=== PATIENT | male | born 1990 | race Caucasian/White ===

== ENCOUNTER 2017-04-14 11:53 | Emergency (ER) | payer BC ==
--- NOTE | 2017-04-14 12:15 | EDM.PDOC ---
ED HPI GENERAL MEDICAL PROBLEM - General Chief Complaint: Respiratory Problem Stated Complaint: COUGH, CHEST PAIN Time Seen by Provider: 04/14/17 12:15 Source of Information: Reports: Patient History Limitations: Reports: No Limitations - History of Present Illness INITIAL COMMENTS - FREE TEXT/NARRATIVE: HISTORY AND PHYSICAL: []26-year-old male presenting with a cough, sternal chest pain with cough History of Present Illness: []Patient recently returned from [place] with his family all the family members have been sick and now starting to get well. Patient awakened last night with hard coughing now is complaining of pain to the lower sternum. He took some ibuprofen looked it up on the Internet. Is concerned about inflammation. Review of Systems: As per history of present illness and below otherwise all systems reviewed and negative. Past medical history: As per history of present illness and as reviewed below otherwise noncontributory. Surgical history: As per history of present illness and as reviewed below otherwise noncontributory. Social history: No reported history of drug or alcohol abuse. Family history: As per history of present illness and as reviewed below otherwise noncontributory. Physical exam: Alert and oriented male, nontoxic in appearance. Can speak in about 4-5 words without having cough. Is answering questions appropriately. HEENT: Atraumatic, normocehpalic, pupils reactive, negative for conjunctival pallor or scleral icterus, mucous membranes moist, throat clear, neck supple, nontender, trachea midline. Lungs: Coarse to auscultation, breath sounds diminished equal bilaterally, chest tender with palpation at the lower sternum. Heart: S1S2, regular, negative for clicks, rubs, or JVD. Abdomen: Soft, nondistended, nontender. Negative for masses or hepatossplenmegaly. Negative for costovertebral tenderness. Pelvis: Stable nontender. Genitourinary: Deferred. Rectal: Deferred Extremities: Atraumatic, negative for cords or calf pain. Neurovascular unremarkable. Neuro: Awake, alert, oriented. Cranial nerves II through XII unremarkable. Cerebellum unremarkable. Motor and sensory unremarkable throughout. Exam nonfocal. Diagnostics: [CBC rapid strep chest x-ray influenza] Therapeutics: [] Impression: [] Plan: [] Definitive disposition and diagnosis as appropriate pending reevaluation and review of above. Onset: Sudden Duration: Day(s):, Getting Worse Location: Reports: Chest Quality: Reports: Ache Severity: Moderate Improves with: Reports: None Worsens with: Reports: Breathing Middle Chest Pain Score (Numeric/FACES): 2 - Related Data Allergies Allergy/AdvReac Type Severity Reaction Status Date / Time No Known Allergies Allergy Verified 04/14/17 12:21 Home Meds: Home Meds . [No Known Home Meds] 04/14/17 [History] ED ROS GENERAL - Review of Systems Review Of Systems: ROS reveals no pertinent complaints other than HPI. ED EXAM, GENERAL - Physical Exam Exam: See Below (see dictation) Course - Vital Signs Last Recorded V/S: Last Vital Signs Temp 37.9 C 04/14/17 12:16 Pulse 98 04/14/17 12:16 Resp 18 04/14/17 12:16 BP 127/71 04/14/17 12:16 Pulse Ox 98 04/14/17 12:16 - Orders/Labs/Meds Orders: Active Orders 24 hr Category Date Time Status Pen G Chauncey/Pen G Procaine [Bicillin C-R 600/600] Med 04/14/17 13:06 Once 1.2 millunits IM ONETIME ONE Medication Orders Penicillin G Procaine/Benzathine (Bicillin C-R 600/600) 1.2 millunits IM ONETIME ONE Stop: 04/14/17 13:07 Labs: Laboratory Tests 04/14/17 Range/Units 12:56 WBC 12.03 H (4.0-11.0) K/uL RBC 5.20 (4.50-5.90) M/uL Hgb 15.4 (13.0-17.0) g/dL Hct 44.1 (38.0-50.0) % MCV 84.8 (80.0-98.0) fL MCH 29.6 (27.0-32.0) pg MCHC 34.9 (31.0-37.0) g/dL RDW Std Deviation 40.7 (28.0-62.0) fl RDW Coeff of Lizandro 13 (11.0-15.0) % Plt Count 223 (150-400) K/uL MPV 8.80 (7.40-12.00) fL Neut % (Auto) 73.2 (48.0-80.0) % Lymph % (Auto) 14.2 L (16.0-40.0) % [place] % (Auto) 11.9 (0.0-15.0) % Eos % (Auto) 0.5 (0.0-7.0) % Baso % (Auto) 0.2 (0.0-1.5) % Neut # (Auto) 8.8 H (1.4-5.7) K/uL Lymph # (Auto) 1.7 (0.6-2.4) K/uL [place] # (Auto) 1.4 H (0.0-0.8) K/uL Eos # (Auto) 0.1 (0.0-0.7) K/uL Baso # (Auto) 0.0 (0.0-0.1) K/uL Nucleated RBC % 0.0 /100WBC Nucleated RBCs # 0 K/uL Meds: Medications Generic Name Dose Route Start Last Admin Trade Name Freq PRN Reason Stop Dose Admin Penicillin G Procaine/Benzathine 1.2 millunits 04/14/17 13:06 Bicillin C-R 600/600 IM 04/14/17 13:07 ONETIME ONE Departure - Departure Time of Disposition: 13:06 Disposition: Home, Self-Care 01 Condition: Good Clinical Impression: Strep pharyngitis - Discharge Information Referrals: PCP,None [Primary Care Provider] - Forms: ED Department Discharge Additional Instructions: The following information is given to patients seen in the emergency department who are being discharged to home. This information is to outline your options for follow-up care. We provide all patients seen in our emergency department with a follow-up referral. The need for follow-up, as well as the timing and circumstances, are variable depending upon the specifics of your emergency department visit. If you don't have a primary care physician on staff, we will provide you with a referral. We always advise you to contact your personal physician following an emergency department visit to inform them of the circumstance of the visit and for follow-up with them and/or the need for any referrals to a consulting specialist. The emergency department will also refer you to a specialist when appropriate. This referral assures that you have the opportunity for followup care with a specialist. All of these measure are taken in an effort to provide you with optimal care, which includes your followup. Under all circumstances we always encourage you to contact your private physician who remains a resource for coordinating your care. When calling for followup care, please make the office aware that this follow-up is from your recent emergency room visit. If for any reason you are refused follow-up, please contact the [facility] emergency department at and asked to speak to the emergency department charge nurse. Influenza test is negative You were found to have a strep bacteria You were given penicillin injection in the ED Your family should be evaluated and treated Follow-up with your primary care provider - My Orders Last 24 Hours: My Active Orders 04/14/17 13:06 Pen G Chauncey/Pen G Procaine [Bicillin C-R 600/600] 1.2 millunits IM ONETIME ONE - Assessment/Plan Last 24 Hours: My Active Orders 04/14/17 13:06 Pen G Chauncey/Pen G Procaine [Bicillin C-R 600/600] 1.2 millunits IM ONETIME ONE
--- NOTE | 2017-04-14 13:02 | CR ---
EXAMINATION: Two-view chest (PA and Lateral views). HISTORY: Shortness of breath. FINDINGS: The trachea is midline. The cardiomediastinal silhouette is within normal limits. No pulmonary infilt rates, effusions or pneumothorax. Osseous structures appear unremarkable. IMPRESSION: No acute cardiopulmonary process.
[2017-04-14] MEDS ORDERED: Penicillin G Benzathine/Procaine 600-600 1.2 Millunits/2 ML Syringe IM ONE (13:06)
[2017-04-14] MEDS ORDERED: Penicillin G Benzathine 1,200,000 Units/2 ML Syringe IM ONE ×2 (13:15)
[2017-04-14 15:02] VITALS: BP 126/68
== END 2017-04-14 13:39 | disposition home or self-care (01) ==
LOC: MW.ED 11:53
DX: J02.0 Streptococcal pharyngitis (principal)
CPT/HCPCS: 36415; 71020; 85025; 87804; 87880; 96372; 99283; J0561

== ENCOUNTER 2018-03-23 09:30 | Emergency (ER) | payer BC ==
--- NOTE | 2018-03-23 10:10 | EDM.PDOC ---
ED HPI GENERAL MEDICAL PROBLEM - General Chief Complaint: ENT Problem Stated Complaint: DIFF SWALLOWING Time Seen by Provider: 03/23/18 10:06 Source of Information: Reports: Patient History Limitations: Reports: No Limitations - History of Present Illness INITIAL COMMENTS - FREE TEXT/NARRATIVE: HISTORY AND PHYSICAL: History of present illness: Patient is a 27-year-old male here with complaint of difficulty swallowing since yesterday. He states he was able to eat spaghetti fine last night but choked on a piece of bread. He is able to drink water but states he does have a hard time getting the water down at times and states it came out his nose last night. He states he has a hard time swallowing his saliva but not having to spit it out. He states he was able to swallow better after taking ibuprofen. He denies any pain in his throat. He denies fevers but states he's felt chills. Review of systems: As per history of present illness and below otherwise all systems reviewed and negative. Past medical history: As per history of present illness and as reviewed below otherwise noncontributory. Surgical history: As per history of present illness and as reviewed below otherwise noncontributory. Social history: No reported history of drug or alcohol abuse. Family history: As per history of present illness and as reviewed below otherwise noncontributory. Physical exam: General: patient sitting comfortably in no acute distress HEENT: Throat is erythematous without exudate. Tonsils are 1+ left and 2+ right , no uvula deviation. Nasal congestion noted. Atraumatic, normocephalic, pupils reactive, negative for conjunctival pallor or scleral icterus, mucous membranes moist, neck supple, nontender, trachea midline. Lungs: Clear to auscultation, breath sounds equal bilaterally, chest nontender. Heart: S1S2, regular, negative for clicks, rubs, or JVD. Abdomen: Soft, nondistended, nontender. Negative for masses or hepatosplenomegaly. Negative for costovertebral tenderness. Pelvis: Stable nontender. Genitourinary: Deferred. Rectal: Deferred. Extremities: Atraumatic, negative for cords or calf pain. Neurovascular unremarkable. Neuro: Awake, alert, oriented. Cranial nerves II through XII unremarkable. Cerebellum unremarkable. Motor and sensory unremarkable throughout. Exam nonfocal. Notes: Diagnostics: Rapid strep Soft tissue neck Therapeutics: [] Impression: Acute pharyngitis Plan: 1. Take antibiotic as directed. Continue taking motrin as needed 2. Follow up with ENT 3. Return to ED as needed as discussed Definitive disposition and diagnosis as appropriate pending reevaluation and review of above. - Related Data Allergies Allergy/AdvReac Type Severity Reaction Status Date / Time No Known Allergies Allergy Verified 03/23/18 09:44 Home Meds: Home Meds Penicillin V Potassium 500 mg PO Q8HR #30 tab 03/23/18 [Rx] Past Medical History - Past Surgical History Male Surgical History: Reports: Vasectomy Social & Family History - Family History Family Medical History: Noncontributory - Tobacco Use Smoking Status *Q: Current Every Day Smoker Years of Tobacco use: 12 Packs/Tins Daily: 1.6 Second Hand Smoke Exposure: Yes - Caffeine Use Caffeine Use: Reports: Coffee - Recreational Drug Use Recreational Drug Use: No ED ROS ENT - Review of Systems Review Of Systems: ROS reveals no pertinent complaints other than HPI. ED EXAM, ENT - Physical Exam Exam: See Below (see dictation) Course - Vital Signs Last Recorded V/S: Last Vital Signs Temp 36.5 C 03/23/18 09:44 Pulse 113 H 03/23/18 09:44 Resp 18 03/23/18 09:44 BP 130/89 03/23/18 09:44 Pulse Ox 97 03/23/18 09:44 - Orders/Labs/Meds Orders: Active Orders 24 hr Category Date Time Status Neck Soft Tissue [CR] Stat Exams 03/23/18 10:28 Taken CULTURE STREP A CONFIRMATION [RM] Stat Lab 03/23/18 10:07 Results STREP SCRN A RAPID W CULT CONF [RM] Stat Lab 03/23/18 10:07 Ordered Departure - Departure Time of Disposition: 11:25 Disposition: Home, Self-Care 01 Condition: Good Clinical Impression: Pharyngitis - Discharge Information Prescriptions: Penicillin V Potassium 500 mg PO Q8HR #30 tab Referrals: PCP,None [Primary Care Provider] - Forms: ED Department Discharge Additional Instructions: The following information is given to patients seen in the emergency department who are being discharged to home. This information is to outline your options for follow-up care. We provide all patients seen in our emergency department with a follow-up referral. The need for follow-up, as well as the timing and circumstances, are variable depending upon the specifics of your emergency department visit. If you don't have a primary care physician on staff, we will provide you with a referral. We always advise you to contact your personal physician following an emergency department visit to inform them of the circumstance of the visit and for follow-up with them and/or the need for any referrals to a consulting specialist. The emergency department will also refer you to a specialist when appropriate. This referral assures that you have the opportunity for follow-up care with a specialist. All of these measure are taken in an effort to provide you with optimal care, which includes your follow-up. Under all circumstances we always encourage you to contact your private physician who remains a resource for coordinating your care. When calling for follow-up care, please make the office aware that this follow-up is from your recent emergency room visit. If for any reason you are refused follow-up, please contact the [facility] Emergency Department at and asked to speak to the emergency department charge nurse. [facility] - ENT [address] [place] [id number] 1. Take antibiotic as directed. Continue taking motrin as needed 2. Follow up with ENT 3. Return to ED as needed as discussed - My Orders Last 24 Hours: My Active Orders 03/23/18 10:07 CULTURE STREP A CONFIRMATION [RM] Stat STREP SCRN A RAPID W CULT CONF [RM] Stat 03/23/18 10:28 Neck Soft Tissue [CR] Stat - Assessment/Plan Last 24 Hours: My Active Orders 03/23/18 10:07 CULTURE STREP A CONFIRMATION [RM] Stat STREP SCRN A RAPID W CULT CONF [RM] Stat 03/23/18 10:28 Neck Soft Tissue [CR] Stat
[2018-03-23 11:42] VITALS: BP 135/81
--- NOTE | 2018-03-24 18:49 | CR ---
EXAM DATE: 03/23/18 PATIENT'S AGE: 27 Patient: CAROLINE HAYES Facility: [place], [place] Site . Site : 1988 Study: XRay ST Neck [id number]/23/2018 11:00:08 AM Ordering Physician: Doctor Logan Final Report: INDICATION: Difficulty swallowing. TECHNIQUE: AP and lateral view soft tissue neck. FINDINGS: The epiglottis appears normal. There is no evidence of a radiopaque foreign body within the neck. Cervical vertebra appear anatomically aligned. There is no evidence of soft tissue swelling within the prevertebral region. The larynx and subglottic trachea appear normal. IMPRESSION: Normal soft tissue neck. Dictated by Huey Childs MD @ Mar 23 2018 11:20AM (Electronic Signature) Report Signed by Proxy. MOUSTAPHA
== END 2018-03-23 11:35 | disposition home or self-care (01) ==
LOC: MW.ED 09:30
DX: J02.9 Acute pharyngitis, unspecified (principal); F17.210 Nicotine dependence, cigarettes, uncomplicated
CPT/HCPCS: 70360; 70360-26; 87081; 87880-QW; 99284

== ENCOUNTER 2020-03-08 18:32 | Emergency (ER) | payer BC ==
[2020-03-08 18:47] VITALS: BP 135/92; PULSE 79
[2020-03-08] MEDS ORDERED: Acetaminophen/HYDROcodone 325-5 MG Tab PO ONE (18:48)
--- NOTE | 2020-03-08 18:51 | EDM.PDOC ---
ED HPI GENERAL MEDICAL PROBLEM - General Chief Complaint: ENT Problem Stated Complaint: EAR PAIN Time Seen by Provider: 03/08/20 18:35 Source of Information: Reports: Patient History Limitations: Reports: No Limitations - History of Present Illness INITIAL COMMENTS - FREE TEXT/NARRATIVE: HISTORY AND PHYSICAL: History of present illness: Patient is a 29-year-old male who presents to the emergency room with complaints of right ear pain over the past 1 to 2 days. He states he has been using Tylenol and ibuprofen without any relief. He is concerned he may have an ear infection. Denies any ear trauma/perforation or drainage. Patient denies any fever, chills, headache, change in vision, syncope or near syncope. Denies any chest pain, back pain, shortness of breath or cough. Denies any eye or symptoms. Patient has been eating and drinking appropriately. Review of systems: As per history of present illness and below otherwise all systems reviewed and negative. Past medical history: As per history of present illness and as reviewed below otherwise noncontributory. Surgical history: As per history of present illness and as reviewed below otherwise noncontribu tory. Social history: See social history for further information Family history: As per history of present illness and as reviewed below otherwise noncontributory. Physical exam: General: Well-developed and well-nourished 29-year-old male. Alert and oriented. Nontoxic-appearing and in no acute distress. HEENT: Atraumatic, normocephalic, pupils equal and reactive bilaterally, negative for conjunctival pallor or scleral icterus, mucous membranes moist, TMs normal on left, right TM is erythematous with absent light reflex and no bulging. Throat clear, neck supple, nontender, trachea midline. No drooling or trismus noted. No meningeal signs. No hot potato voice noted. Lungs: Clear to auscultation, breath sounds equal bilaterally. Heart: S1S2, regular rate and rhythm without overt murmur Skin: Intact, warm, dry. No lesions or rashes noted. Hematologic: No petechiae or purpra. Mucosa appropriate color and normal nail bed color and refill. Extremities: Atraumatic, moves all extremities per self without difficulty or deficits, negative for cords or calf pain. Neurovascular unremarkable. Neuro: Awake, alert, oriented. Cranial nerves II through XII unremarkable. Cerebellum unremarkable. Motor and sensory unremarkable throughout. Exam nonfocal. Notes: Patient is requesting something for pain, last took ibuprofen without any relief. I will give him a one-time dose of medication so he can get some rest tonight. Otherwise we will have him take [id number] ibuprofen/Tylenol. We discussed signs and symptoms that would prompt him to return to the emergency room. Supportive care measures were reviewed and discussed. Voices understanding and is agreeable to plan of care. Denies any further questions or concerns at this time. Diagnostics: None Therapeutics: B[place]mer x1 Prescription: Augmentin Impression: Otitis media, right Plan: 1. Take your medication as directed. 2. Gentle warm packs to the area may be beneficial. Putting anything in the ear canal it is healing. 3. Tylenol and or ibuprofen as needed for pain management. 4. Follow-up with your primary care provider next week as we discussed. If your symptoms should worsen, new symptoms develop or any of the signs and symptoms we discussed should arise please return to the emergency room or call 911 (if needed). Definitive disposition and diagnosis as appropriate pending reevaluation and review of above. R ear Pain Score (Numeric/FACES): 8 - Related Data Allergies Allergy/AdvReac Type Severity Reaction Status Date / Time No Known Allergies Allergy Verified 03/08/20 18:47 Home Meds: Home Meds Amoxicillin/Clavulanate K [Augmentin 875-125 MG] 1 tab PO BID 10 Days #20 tablet 03/08/20 [Rx] Past Medical History - Past Surgical History Male Surgical History: Reports: Vasectomy Social & Family History - Family History Family Medical History: Noncontributory - Caffeine Use Caffeine Use: Reports: Coffee ED ROS ENT - Review of Systems Review Of Systems: Comprehensive ROS is negative, except as noted in HPI. ED EXAM, ENT - Physical Exam Exam: See Below (See dictation) Course - Vital Signs Last Recorded V/S: Last Vital Signs Temp 96.9 F 03/08/20 18:39 Pulse 79 03/08/20 18:39 Resp 16 03/08/20 18:39 BP 135/92 H 03/08/20 18:39 Pulse Ox 100 03/08/20 18:39 - Orders/Labs/Meds Meds: Medications Discontinued Medications Generic Name Dose Route Start Last Admin Trade Name Freq PRN Reason Stop Dose Admin Hydrocodone Bitart/Acetaminophen 2 tab 03/08/20 18:48 [place] 325-5 Mg PO 03/08/20 18:49 ONETIME ONE Departure - Departure Time of Disposition: 18:51 Disposition: Home, Self-Care 01 Clinical Impression: Otitis media Qualifiers: Otitis media type: suppurative Chronicity: acute Laterality: right Recurrence: non-recurrent Spontaneous tympanic membrane rupture: without spontaneous rupture Qualified Code(s): H66.001 - Acute suppurative otitis media without spontaneous rupture of ear drum, right ear - Discharge Information Prescriptions: Amoxicillin/Clavulanate K [Augmentin 875-125 MG] 1 tab PO BID 10 Days #20 tablet Instructions: Otitis Media, Adult, [id number] Referrals: PCP,None [Primary Care Provider] - Forms: ED Department Discharge Additional Instructions: The following information is given to patients seen in the emergency department who are being discharged to home. This information is to outline your options for follow-up care. We provide all patients seen in our emergency department with a follow-up referral. The need for follow-up, as well as the timing and circumstances, are variable depending upon the specifics of your emergency department visit. If you don't have a primary care physician on staff, we will provide you with a referral. We always advise you to contact your personal physician following an emergency department visit to inform them of the circumstance of the visit and for follow-up with them and/or the need for any referrals to a consulting specialist. The emergency department will also refer you to a specialist when appropriate. This referral assures that you have the opportunity for follow-up care with a specialist. All of these measure are taken in an effort to provide you with optimal care, which includes your follow-up. Under all circumstances we always encourage you to contact your private physician who remains a resource for coordinating your care. When calling for follow-up care, please make the office aware that this follow-up is from your recent emergency room visit. If for any reason you are refused follow-up, please contact the [facility] Emergency Department at and asked to speak to the emergency department charge nurse. [facility] Primary Care [address] [place] [id number] [facility] [address] [place] [address] Thank you for choosing the [facility] emergency department in [place] for your medical needs today. It was a pleasure caring for you. Today you were seen in the emergency department for right ear infection/ear pain. 1. Take your medication as directed. 2. Gentle warm packs to the area may be beneficial. Putting anything in the ear canal it is healing. 3. Tylenol and or ibuprofen as needed for pain management. 4. Follow-up with your primary care provider next week as we discussed. If your symptoms should worsen, new symptoms develop or any of the signs and symptoms we discussed should arise please return to the emergency room or call 911 (if need ed). Sepsis Event Note (ED) - Evaluation Sepsis Screening Result: No Definite Risk - Focused Exam Vital Signs: Vital Signs Temp Pulse Resp BP Pulse Ox 03/08/20 18:39 96.9 F 79 16 135/92 H 100
== END 2020-03-08 19:15 | disposition home or self-care (01) ==
LOC: MW.ED 18:32
DX: H66.001 Acute suppurative otitis media without spontaneous rupture of ear drum, right ear (principal); Z98.52 Vasectomy status
CPT/HCPCS: 99282; A9270

== ENCOUNTER 2020-03-19 21:01 | Emergency (ER) | payer BC ==
[2020-03-19] MEDS ORDERED: Ketorolac 15 MG/ML SDV IM ONE (21:23)
--- NOTE | 2020-03-19 21:29 | EDM.PDOC ---
ED HPI GENERAL MEDICAL PROBLEM - General Chief Complaint: ENT Problem Stated Complaint: EAR INFECTION Time Seen by Provider: 03/19/20 21:15 Source of Information: Reports: Patient History Limitations: Reports: No Limitations - History of Present Illness INITIAL COMMENTS - FREE TEXT/NARRATIVE: History of present illness: [Patient is 29-year-old male who presents with pain anterior to his right ear. He states that he was treated with amoxicillin for 10 days for a right ear infection that was diagnosed about 12 days ago. He states he that he finished a course of antibiotics but he has continued to have some pain, it seems to be more localized to the anterior portion and external to the right ear. He has been using ibuprofen at home, this is provided effective relief, but when it wears off the pain returns. He denies any trouble swallowing, denies trouble breathing, denies any discharge from the ear, denies fever, denies any sinus pain or pressure, denies blurry vision or headache. Denies any known history of TMJ dysfunction, denies tooth pain.] Review of systems: As per history of present illness and below otherwise all systems reviewed and negative. Past medical history: As per history of present illness and as reviewed below otherwise noncontributory. Surgical history: As per history of present illness and as reviewed below otherwise noncontributor y. Social history: No reported history of drug or alcohol abuse. Family history: As per history of present illness and as reviewed below otherwise noncontributory. Physical exam: General: Awake, alert, no acute distress, A&O X3. HEENT: Atraumatic, normocephalic, pupils reactive, negative for conjunctival pallor or scleral icterus, mucous membranes moist, throat clear, neck supple, nontender, trachea midline. mild pain on palpation of right TMJ region, no palpable clicks with ROM of jaw. No LAD. TM's normal bilaterally. ear canals patent bilaterally. Lungs: Clear to auscultation, breath sounds equal bilaterally, chest nontender. Heart: RRR, normal S1S2, no JVD. Abdomen: Soft, nondistended, nontender. Negative for masses or hepatosplenomegaly. Negative for costovertebral tenderness. Pelvis: Stable nontender. Genitourinary: Deferred. Rectal: Deferred. Extremities: Atraumatic, no edema, Neurovascular unremarkable. Neuro: Motor and sensory grossly intact throughout. Exam nonfocal. Diagnostics: [] Therapeutics: [] Impression: [] Plan: [] Definitive disposition and diagnosis as appropriate pending reevaluation and review of above. right ear Pain Score (Numeric/FACES): 3 - Related Data Allergies Allergy/AdvReac Type Severity Reaction Status Date / Time No Known Allergies Allergy Verified 03/19/20 21:09 Home Meds: Home Meds . [No Known Home Meds] 03/19/20 [History] Past Medical History HEENT History: Reports: None Cardiovascular History: Reports: None Respiratory History: Reports: None Gastrointestinal History: Reports: None Genitourinary History: Reports: None Musculoskeletal History: Reports: None Neurological History: Reports: None Psychiatric History: Reports: None Endocrine/Metabolic History: Reports: None Insulin Pump Model and Power System Operator: None Immunologic History: Reports: None Oncologic (Cancer) History: Reports: None Dermatologic History: Reports: None - Infectious Disease History Infectious Disease History: Reports: None - Past Surgical History Head Surgeries/Procedures: Reports: None GI Surgical History: Reports: Appendectomy Male Surgical History: Reports: Vasectomy Social & Family History - Family History Family Medical History: Noncontributory - Tobacco Use Smoking Status *Q: Current Every Day Smoker Years of Tobacco use: 15 Packs/Tins Daily: 1 - Caffeine Use Caffeine Use: Reports: Coffee - Recreational Drug Use Recreational Drug Use: No ED ROS ENT - Review of Systems Review Of Systems: Comprehensive ROS is negative, except as noted in HPI. ED EXAM, ENT - Physical Exam Exam: See Below (see h and p) Course - Vital Signs Text/Narrative:: There is no evidence for recurrent otitis media. Patient is well-appearing. The pain is located anterior to the right ear, over the TMJ region. I told him he would do well to follow-up with his dentist, potentially get x-rays of the area, and to get an evaluation of his teeth. Patient tells me that he was post to have his wisdom teeth out in the past but never got around to it and he wonders if this could be a potential cause as well. No evidence for an active infection. Tolerating oral secretions, no stridor, no indication for retreatment with antibiotics at this time. Return precautions provided otherwise he was well-appearing and stable at discharge. Last Recorded V/S: Last Vital Signs Temp 36.6 C 03/19/20 21:10 Pulse 93 03/19/20 21:10 Resp 18 03/19/20 21:10 BP 137/66 03/19/20 21:10 Pulse Ox 98 03/19/20 21:10 - Orders/Labs/Meds Orders: Active Orders 24 hr Category Date Time Status Ketorolac [Toradol] Med 03/19/20 21:23 Once 15 mg IM ONETIME ONE Medication Orders Ketorolac Tromethamine (Toradol) 15 mg IM ONETIME ONE Stop: 03/19/20 21:24 Meds: Medications Generic Name Dose Route Start Last Admin Trade Name Jory PRN Reason Stop Dose Admin Ketorolac Tromethamine 15 mg 03/19/20 21:23 Toradol IM 03/19/20 21:24 ONETIME ONE Departure - Departure Time of Disposition: 21:28 Disposition: Home, Self-Care 01 Condition: Good Clinical Impression: TMJ (temporomandibular joint syndrome) - Discharge Information Instructions: Temporomandibular Joint Syndrome Referrals: PCP,None [Primary Care Provider] - Additional Instructions: Follow-up with primary care doctor and dentist. Continue to use ibuprofen and/or Tylenol as needed and directed for pain control. Return to the ER with any new or worsening symptoms. The following information is given to patients seen in the emergency department who are being discharged to home. This information is to outline your options for follow-up care. We provide all patients seen in our emergency department with a follow-up referral. The need for follow-up, as well as the timing and circumstances, are variable depending upon the specifics of your emergency department visit. If you don't have a primary care physician on staff, we will provide you with a referral. We always advise you to contact your personal physician following an emergency department visit to inform them of the circumstance of the visit and for follow-up with them and/or the need for any referrals to a consulting specialist. The emergency department will also refer you to a specialist when appropriate. This referral assures that you have the opportunity for follow-up care with a specialist. All of these measure are taken in an effort to provide you with optimal care, which includes your follow-up. Under all circumstances we always encourage you to contact your private physician who remains a resource for coordinating your care. When calling for follow-up care, please make the office aware that this follow-up is from your recent emergency room visit. If for any reason you are refused follow-up, please contact the [facility] Emergency Department at and asked to speak to the emergency department charge nurse. Sepsis Event Note (ED) - Evaluation Sepsis Screening Result: No Definite Risk - Focused Exam Vital Signs: Vital Signs Temp Pulse Resp BP Pulse Ox 03/19/20 21:10 36.6 C 93 18 137/66 98 - My Orders Last 24 Hours: My Active Orders 03/19/20 21:23 Ketorolac [Toradol] 15 mg IM ONETIME ONE - Assessment/Plan Last 24 Hours: My Active Orders 03/19/20 21:23 Ketorolac [Toradol] 15 mg IM ONETIME ONE
[2020-03-19 22:04] VITALS: BP 124/72; PULSE 82
== END 2020-03-19 22:00 | disposition home or self-care (01) ==
LOC: MW.ED 21:01
DX: M26.601 Right temporomandibular joint disorder, unspecified (principal); F17.210 Nicotine dependence, cigarettes, uncomplicated
CPT/HCPCS: 96372; 99282; J1885

== ENCOUNTER 2021-04-06 15:31 | Emergency (ER) | payer BC ==
[2021-04-06 16:31] VITALS: BP 119/90; PULSE 94
--- NOTE | 2021-04-06 17:18 | EDM.PDOC ---
ED HPI GENERAL MEDICAL PROBLEM - General Chief Complaint: ENT Problem Stated Complaint: STREP Time Seen by Provider: 04/06/21 17:06 Source of Information: Reports: Patient History Limitations: Reports: No Limitations - History of Present Illness INITIAL COMMENTS - FREE TEXT/NARRATIVE: 30-year-old male presents for sore throat, productive cough, shortness of breath, bilateral ear pain times last few days. No fevers. No difficulty breathing. Throat Pain Score (Numeric/FACES): 6 - Related Data Allergies Allergy/AdvReac Type Severity Reaction Status Date / Time No Known Allergies Allergy Verified 03/19/20 21:09 Home Meds: Home Meds Ciprofloxacin HCl/Dexameth [Ciprodex Otic Suspension] 2 drop OT TID 10 Days #1 bottle 04/06/21 [Rx] Past Medical History HEENT History: Reports: None Cardiovascular History: Reports: None Respiratory History: Reports: None Gastrointestinal History: Reports: None Genitourinary History: Reports: None Musculoskeletal History: Reports: None Neurological History: Reports: None Psychiatric History: Reports: None Endocrine/Metabolic History: Reports: None Insulin Pump Model and Chief Pilot: None Immunologic History: Reports: None Oncologic (Cancer) History: Reports: None Dermatologic History: Reports: None - Infectious Disease History Infectious Disease History: Reports: None - Past Surgical History Head Surgeries/Procedures: Reports: None GI Surgical History: Reports: Appendectomy Male Surgical History: Reports: Vasectomy Social & Family History - Family History Family Medical History: No Pertinent Family History - Tobacco Use Tobacco Use Status *Q: Current Every Day Tobacco User Years of Tobacco use: 20 Packs/Tins Daily: 1 - Caffeine Use Caffeine Use: Reports: None - Recreational Drug Use Recreational Drug Use: No ED ROS GENERAL - Review of Systems Review Of Systems: Comprehensive ROS is negative, except as noted in HPI. ED EXAM, GENERAL - Physical Exam Exam: See Below Exam Limited By: No Limitations General Appearance: Alert, WD/WN, No Apparent Distress Ears: Normal External Exam, Hearing Grossly Normal, Normal TMs, Other (erythema of b/l EACs L>R) Throat/Mouth: Normal Inspection, Normal Oropharynx, Normal Voice, No Airway Compromise Head: Atraumatic, Normocephalic Neck: Normal Inspection Respiratory/Chest: No Respiratory Distress, Lungs Clear, Normal Breath Sounds, No Accessory Muscle Use Cardiovascular: Normal Peripheral Pulses, Regular Rate, Rhythm Extremities: Normal Inspection Neurological: Alert, Normal Cognition, Normal Gait Psychiatric: Normal Affect, Normal Mood Skin Exam: Warm, Dry, Intact, Normal Color Course - Vital Signs Last Recorded V/S: Last Vital Signs Temp 97.6 F 04/06/21 16:27 Pulse 94 04/06/21 16:27 Resp 18 04/06/21 16:27 BP 119/90 04/06/21 16:27 Pulse Ox 99 04/06/21 16:27 - Orders/Labs/Meds Orders: Active Orders 24 hr Category Date Time Status Chest 1V Frontal [CR] Stat Exams 04/06/21 17:16 Taken dexAMETHasone [Decadron] Med 04/06/21 17:57 Stat 6 mg IM STAT STA Labs: Laboratory Tests 04/06/21 04/06/21 Range/Units 16:40 17:10 SARS-CoV-2 RNA (DOROTHEA) NEGATIVE (NEGATIVE) Group A Strep (PCR) NOT DETECTED (NOT DETECT) - Re-Assessments/Exams Free Text/Narrative Re-Assessment/Exam: 04/06/21 17:18 We will get strep swab, Covid swab, chest x-ray. Will give Ciprodex drops for the ears. 04/06/21 17:57 Strep and Covid swabs are negative. Patient likely with viral pharyngitis. Will give Decadron. Departure - Departure Time of Disposition: 17:57 Disposition: Home, Self-Care 01 Condition: Good Clinical Impression: Pharyngitis Qualifiers: Pharyngitis/tonsillitis etiology: unspecified etiology Qualified Code(s): J02.9 - Acute pharyngitis, unspecified - Discharge Information Prescriptions: Ciprofloxacin HCl/Dexameth [Ciprodex Otic Suspension] 2 drop OT TID 10 Days #1 bottle Instructions: Pharyngitis Referrals: PCP,None [Primary Care Provider] - Forms: ED Department Discharge Additional Instructions: Your strep and Covid swabs were negative. You likely have viral pharyngitis which is similar to strep throat but caused by a virus instead of a bacteria. There is really no specific treatment for this, however, you were given a dose of Decadron in the emergency department which is a long-acting steroid that has been shown to reduce symptom duration by about 1 day. I also prescribed you some antibiotic drops for your ears because you have a lot of redness particularly on the right side. The following information is given to patients seen in the emergency department who are being discharged to home. This information is to outline your options for follow-up care. We provide all patients seen in our emergency department with a follow-up referral. The need for follow-up, as well as the timing and circumstances, are variable depending upon the specifics of your emergency department visit. If you don't have a primary care physician on staff, we will provide you with a referral. We always advise you to contact your personal physician following an emergency department visit to inform them of the circumstance of the visit and for follow-up with them and/or the need for any referrals to a consulting specialist. The emergency department will also refer you to a specialist when appropriate. This referral assures that you have the opportunity for follow-up care with a specialist. All of these measure are taken in an effort to provide you with optimal care, which includes your follow-up. Under all circumstances we always encourage you to contact your private physician who remains a resource for coordinating your care. When calling for follow-up care, please make the office aware that this follow-up is from your recent emergency room visit. If for any reason you are refused follow-up, please contact the [facility] Emergency Department at and asked to speak to the emergency department charge nurse. Please follow up with your primary care physician. If you do not have a primary care physician, see below: [facility] [address] [place] [id number] [id number] [facility] [address] [place] [id number] Sepsis Event Note (ED) - Focused Exam Vital Signs: Vital Signs Temp Pulse Resp BP Pulse Ox 04/06/21 16:27 97.6 F 94 18 119/90 99 - My Orders Last 24 Hours: My Active Orders 04/06/21 17:16 Chest 1V Frontal [CR] Stat 04/06/21 17:57 dexAMETHasone [Decadron] 6 mg IM STAT STA - Assessment/Plan Last 24 Hours: My Active Orders 04/06/21 17:16 Chest 1V Frontal [CR] Stat 04/06/21 17:57 dexAMETHasone [Decadron] 6 mg IM STAT STA
[2021-04-06] MEDS ORDERED: Dexamethasone 10 MG/ML SDV IM STA (17:57)
--- NOTE | 2021-04-06 18:13 | CR ---
INDICATION: Cough. COMPARISON: Chest x-ray dated 14 April 2017. FINDINGS: A single portable chest x-ray shows a normal cardiac silhouette. The lungs show no focal pulmonary opacities. Sharp pleural margins. No pneumothorax. IMPRESSION: No evidence of acute pulmonary abnormalities. Dictated by Boby Kwan MD @ 04/06/2021 6:13:16 PM (Electronically Signed)
== END 2021-04-06 18:32 | disposition home or self-care (01) ==
LOC: MW.ED 15:31
DX: J02.9 Acute pharyngitis, unspecified (principal); Z72.0 Tobacco use; Z20.822 Contact with and (suspected) exposure to COVID-19
CPT/HCPCS: 71045; 87635; 87651; 96372; 99283; J1100; U0002

== ENCOUNTER 2021-04-22 12:30 | Day surgery (SDC) | payer BC ==
[~2021-04-22 12:30] MED LIST: Lactated Ringers 1,000 ML IV SCH
[2021-04-22] MEDS ORDERED: fentaNYL 100 MCG/2 ML SDV ONE (13:35)
[2021-04-22] MEDS ORDERED: Propofol 200 MG/20 ML SDV ONE ×3 (13:35→15:08)
[2021-04-22] MEDS ORDERED: Midazolam 1 MG/ML 2 ML SDV ONE (13:35)
--- NOTE | 2021-04-22 13:37 | PCM.PREANE ---
Preanesthetic Assessment - Anesthesia/Transfusion/Family Hx Anesthesia History: Prior Anesthesia Without Reaction Transfusion History: No Prior Transfusion(s) - Review of Systems General: No Symptoms Pulmonary: No Symptoms Cardiovascular: No Symptoms Gastrointestinal: No Symptoms Neurological: No Symptoms Other: Reports: None - Physical Assessment NPO Status Date: 04/22/21 NPO Status Time: 00:00 Vital Signs: Last Vital Signs Temp 98.2 F 04/22/21 12:34 Pulse 80 04/22/21 12:34 Resp 16 04/22/21 12:34 BP 140/56 L 04/22/21 12:34 Pulse Ox 100 04/22/21 12:34 Height: 5 ft 7 in Weight: 170 lb ASA Class: 3 Mental Status: Alert & Oriented x3 Airway Class: Mallampati = 2 Dentition: Reports: Normal Dentition Thyro-Mental Finger Breadths: 3 Mouth Opening Finger Breadths: 3 ROM/Head Extension: Full Lungs: Clear to Auscultation, Normal Respiratory Effort Cardiovascular: Regular Rate, Regular Rhythm - Allergies Allergies/Adverse Reactions: Allergies Allergy/AdvReac Type Severity Reaction Status Date / Time No Known Allergies Allergy Verified 04/16/21 07:40 - Acknowledgements Anesthesia Type Planned: General Anesthesia Pt an Appropriate Candidate for the Planned Anesthesia: Yes Alternatives and Risks of Anesthesia Discussed w Pt/Guardian: Yes Pt/Guardian Understands and Agrees with Anesthesia Plan: Yes PreAnesthesia Questionnaire HEENT History: Reports: None Cardiovascular History: Reports: None Respiratory History: Reports: None Other Respiratory History: sports induced asthma as a child Gastrointestinal History: Reports: None Other Gastrointestinal History: dysphagia Genitourinary History: Reports: None Musculoskeletal History: Reports: None Other Musculoskeletal History: hx fx ankles Neurological History: Reports: None Psychiatric History: Reports: None Endocrine/Metabolic History: Reports: None Hematologic History: Reports: Anemia Immunologic History: Reports: None Oncologic (Cancer) History: Reports: None Dermatologic History: Reports: None - Infectious Disease History Infectious Disease History: Reports: None - Past Surgical History Head Surgeries/Procedures: Reports: None HEENT Surgical History: Reports: None Cardiovascular Surgical History: Reports: None Respiratory Surgical History: Reports: None GI Surgical History: Reports: Appendectomy Other GI Surgeries/Procedures: hemorrhoidectomy Male Surgical History: Reports: Vasectomy Endocrine Surgical History: Reports: None Neurological Surgical History: Reports: Laminectomy Musculoskeletal Surgical History: Reports: None Oncologic Surgical History: Reports: None Dermatological Surgical History: Reports: None - SUBSTANCE USE Tobacco Use Status *Q: Current Every Day Tobacco User Tobacco Use Within Last Twelve Months: Cigarettes - HOME MEDS Home Medications: Home Meds Ferrous Sulfate 325 mg PO BID 04/16/21 [History] Omeprazole 40 mg PO DAILY 04/16/21 [History] - CURRENT (IN HOUSE) MEDS Current Meds: Current Medications Lactated Ringer's (Ringers, Lactated) 1,000 mls @ 125 mls/hr IV [facility] Last Admin: 04/22/21 12:58 Dose: 125 mls/hr Documented by:
--- NOTE | 2021-04-22 15:26 | PCM.POSTAN ---
POST ANESTHESIA ASSESSMENT - MENTAL STATUS Mental Status: Somnolent - VITAL SIGNS Vital Signs: Last Vital Signs Temp 36.8 C 04/22/21 12:34 Pulse 80 04/22/21 12:34 Resp 16 04/22/21 12:34 BP 140/56 L 04/22/21 12:34 Pulse Ox 100 04/22/21 12:34 - RESPIRATORY Respiratory Status: Respiratory Rate WNL, Airway Patent, O2 Saturation Stable, Supplemental Oxygen - CARDIOVASCULAR CV Status: Pulse Rate WNL, Blood Pressure Stable - GASTROINTESTINAL GI Status: No Symptoms - POST OP HYDRATION Hydration Status: Adequate & Stable
--- NOTE | 2021-04-22 15:27 | PCM48HPAN ---
Post Anesthesia Note - EVALUATION WITHIN 48HRS OF ANESTHETIC Vital Signs in Normal Range: Yes Patient Participated in Evaluation: Yes Respiratory Function Stable: Yes Airway Patent: Yes Cardiovascular Function Stable: Yes Hydration Status Stable: Yes Pain Control Satisfactory: Yes Nausea and Vomiting Control Satisfactory: Yes Mental Status Recovered: Yes Vital Signs: Last Vital Signs Temp 36.8 C 04/22/21 12:34 Pulse 80 04/22/21 12:34 Resp 16 04/22/21 12:34 BP 140/56 L 04/22/21 12:34 Pulse Ox 100 04/22/21 12:34 - COMMENTS/OBSERVATIONS Free Text/Narrative:: VSS, Pt discharged from PACU.
--- NOTE | 2021-04-22 15:38 | PCM.OPNOTE ---
- General Post-Op/Procedure Note Date of Surgery/Procedure: 04/22/21 Operative Procedure(s): Colonoscopy. EGD with biopsies Findings: Patch irregular mucosa in the proximal esophageus normal colonoscopy dictation number [id number] Pre Op Diagnosis: dysphagia. blood in stool Post-Op Diagnosis: Patch irregular mucosa in the proximal esophageus. normal colonoscopy Anesthesia Technique: MAC Primary Surgeon: Jerod Christopher Pathology: EGD biopsies Complications: None Condition: Good
[2021-04-22 15:44] VITALS: BP 103/70; PULSE 73
--- NOTE | 2021-04-22 22:57 | OR ---
SURGEON: DEBORAH ARAGON MD DATE OF PROCEDURE: 04/22/2021 PREOPERATIVE DIAGNOSES: Dysphagia and blood in the stool. POSTOPERATIVE DIAGNOSES: 1. Normal colonoscopy. 2. patch in his very proximal esophagus with slightly irregular mucosa. PROCEDURE PERFORMED: . ANESTHESIA: With anesthesiologist. PRIMARY SURGEON: Deborah Aragon MD PATHOLOGY: EGD biopsies. EXTENT OF THE COLONOSCOPY: To the cecum. EXTENT OF THE EGD: To the duodenum. BOWEL PREP: Excellent. LIMITATIONS: None. REASON FOR PROCEDURE: Patient is a pleasant 30-year-old gentleman who is undergoing colonoscopy for his maternal grandfather had colon cancer. He says for the last two years, he has had blood in his stool as well as hemorrhoids. He has had thrombosed hemorrhoids in the past. The patient also says the past five years, he has had issues with heartburn. He started taking medications for this that has greatly helped. Four years ago, he woke up and had issues with swallowing and some voice change. He did see ENT and was told he might have a shock nerve. His voice returned to normal, but he said he still has issues with swallowing. He said like the food gets stuck in the back of his throat. He says sometimes he has to left his head and turn to the side to swallow. The patient did have an upper GI series that was basically normal. PROCEDURE IN DETAIL: Physical exam was performed. The major risks and benefits associated with the procedure were explained to the patient in detail. The patient verbalized understanding and agreement of the same. The patient was then connected to appropriate monitoring device, IV started. EKG, pulse, pulse oximetry, blood pressure, and capnography were monitored throughout the procedure. Continuous oxygen and sedation were provided by the anesthesiologist. Patient was placed in left lateral decubitus position. Sedation began. After adequate sedation was achieved, the upper endoscope was advanced under direct visualization without any difficulty in the upper GI tract. The anatomy and mucosa of the esophagus, GE junction, stomach, pylorus, and duodenum were all inspected. The duodenum appeared normal. Both retro and antegrade views of the stomach were done and also appeared normal. I did do biopsy of the antrum to check for H pylori. Scope was brought back to the GE junction. GE junction had a good a squamocolumnar junction and Z-line was approximately at 40 cm from incisors. Scope was brought back into the stomach. Stomach was deinsufflated. Scope was brought to the esophagus. At the very proximal part of the stomach, he had a little thick break in the squamous cell lining. Did do several biopsies of this area. Scope was continued to be withdrawn. No other abnormalities seen. Gloves and scopes were changed. Now, a rectal exam was performed. Did have some hemorrhoids. Now, a well- lubricated Olympus colonoscope was inserted into the rectum and advanced under direct visualization to the level of the cecum. Cecum was identified by both visual and anatomic landmarks. Photographs were taken of the cecal cap. The scope was then slowly withdrawn in a circular fashion looking at the color, texture, anatomy, and integrity of mucosa from the cecum to the anal canal. No polyps or lesions were seen. The patient did have some noninflamed internal hemorrhoids. Scope was completely removed and the procedure was terminated. ENDOSCOPIC DIAGNOSES: 1. Normal colonoscopy. 2. Patchy granular mucosa in the proximal esophagus. RECOMMENDATION: Patient will follow up in clinic to go over the pathology. His next colonoscopy should be in five years, given his family history; sooner if he develops signs and symptoms such as change in bowel habits or blood in the stool. BRITANY / KATTY /[id number]
== END 2021-04-22 16:02 | disposition home or self-care (01) ==
LOC: MW.SDS 12:30
PROVIDERS: ATTEND Surgery
DX: K92.1 Melena (principal); K64.8 Other hemorrhoids; R13.10 Dysphagia, unspecified; F17.210 Nicotine dependence, cigarettes, uncomplicated; Z79.899 Other long term (current) drug therapy; Z90.49 Acquired absence of other specified parts of digestive tract; Z98.890 Other specified postprocedural states
CPT/HCPCS: 43239; 45378; 88305; 88312; 88342; J2250; J2704; J3010; J7120; 00813